=== PATIENT | male | born 1970 | race African-American/Black ===

== ENCOUNTER 2021-04-24 11:34 | Inpatient (IN) ==
[2021-04-24] MEDS ORDERED: LOPERAMIDE 2 MG CAPSULE PO STA (12:01)
[2021-04-24] MEDS ORDERED: SODIUM CHLORIDE 0.9% 1,000 ML IV STA (12:01)
[2021-04-24 12:40] LABS: Basophils % 0.1 % (0.0-0.8); Hematocrit 32.9 VOL% (42.0-52.0); Hemoglobin 10.6 GM/DL (14.0-18.0); Immature Granulocytes % 0.7 %; Immature Granulocytes Absolute 0.06 #; Lymphocytes # 0.7 10*3/uL (1.4-4.0); Lymphocytes % 7.9 % (21.2-54.2); Mean Corpuscular HGB Conc 32.2 GM/DL (32-36); Mean Platelet Volume 10.5 FL (9.6-12.0); Monocytes % 12.8 % (1.7-12.7); Neutrophils % 78.5 % (38.7-73.9); Platelet Count 384 T/CUMM (130-400); Red Blood Count 4.57 MC/CUMM (3.8-5.5); Red Cell Distribution Width 12.3 % (9.3-17.3); White Blood Count 8.2 T/CUMM (4-12)
[2021-04-24 13:03] LABS: Albumin 2.1 G/DL (3.4-5.0); Bilirubin,Total 0.7 MG/DL (0.20-1.00); Calcium 8.5 MG/DL (8.5-10.1); Osmolality,Calculated 263.1 MOS/KG (273-304); Potassium 3.5 MMOL/L (3.5-5.1)
[2021-04-24] MEDS ORDERED: GLUCAGON 1 MG VIAL IM PRN (14:17)
[2021-04-24] MEDS ORDERED: DEXTROSE 50% 25 GM/50 ML VIAL IV PRN (14:17)
[2021-04-24] MEDS ORDERED: ONDANSETRON 4 MG/2 ML VIAL IV PRN (14:22)
[2021-04-24] MEDS ORDERED: MELATONIN 3 MG TABLET PO PRN (14:26)
[2021-04-24] MEDS ORDERED: AZITHROMYCIN INJ 500 MG in SODIUM CHLORIDE 0.9% 250 ML IV ONE (14:26)
[2021-04-24 14:35] LABS: Bilirubin,Urine Negative (Negative); Blood, Urine Small mg/dL (Negative); Glucose,Urine (UA) 50 mg/dL (Negative); Ketones,Urine Negative (Negative); Nitrite,Urine Negative (Negative); Protein,Urine >=500 MG/DL; RBC,Urine 1 /HPF (0-4); Urine Appearance CLEAR (Clear); Urine Color Yellow (Yellow); Urine Specific Gravity 1.008 (1.001-1.035)
[2021-04-24 14:51] LABS: Thyroid Stimulating Hormone 0.832 uIU/ml (0.358-3.74)
[2021-04-24 14:56] LABS: INR 1.3; PT Patient Result 14.2 SECS (10.5-12.0)
[2021-04-24] MEDS ORDERED: cefTRIAXone 1,000 MG in SODIUM CHLORIDE 0.9% 100 ML IV SCH (16:00)
[2021-04-24 16:06] LABS: % Iron Saturation 13.5 % (18-50); Albumin 2.1 G/DL (3.4-5.0); Bilirubin,Direct 0.31 MG/DL (0.0-0.20); Bilirubin,Indirect 1.7 MG/DL (0.0-1.0); Ferritin 1038.7 ng/mL (26-388)
[2021-04-24] MEDS: DEXAMETHASONE 4 MG/1 ML VIAL IV SCH (17:31)
[2021-04-24] MEDS: SODIUM CHLORIDE 0.9% 1,000 ML IV SCH (17:32)
[2021-04-24] MEDS: ENOXAPARIN 40 MG/0.4 ML SYRINGE SUBCUT SCH (17:32)
[2021-04-24 17:53] LABS: Folate 14.98 NG/ML (5.38-24.0); Vitamin B12 1037 PG/ML (211-911)
[2021-04-24] MEDS: INSULIN LISPRO 100 UNIT/ML SUBCUT SCH ×2 (18:08→21:39)
[2021-04-24] MEDS ORDERED: hydrALAZINE 20 MG/1 ML VIAL IM PRN (18:11)
[2021-04-24] MEDS: ACETAMINOPHEN 325 MG TABLET PO PRN (18:30)
[2021-04-24] MEDS: hydrALAZINE 20 MG/1 ML VIAL IV PRN (18:33)
[2021-04-24 18:47] LABS: Basophils % 0.2 % (0.0-0.8); Eosinophils % 0.2 % (0.00-10.9); Hematocrit 32.6 VOL% (42.0-52.0); Hemoglobin 10.5 GM/DL (14.0-18.0); Immature Granulocytes % 0.8 %; Immature Granulocytes Absolute 0.07 #; Lymphocytes # 0.5 10*3/uL (1.4-4.0); Lymphocytes % 5.7 % (21.2-54.2); Mean Corpuscular HGB Conc 32.2 GM/DL (32-36); Mean Corpuscular Volume 72.8 FL (87-102); Mean Platelet Volume 10.9 FL (9.6-12.0); Monocytes % 11.3 % (1.7-12.7); Neutrophils % 81.8 % (38.7-73.9); Platelet Count 385 T/CUMM (130-400); Red Blood Count 4.48 MC/CUMM (3.8-5.5); Red Cell Distribution Width 12.3 % (9.3-17.3); White Blood Count 8.7 T/CUMM (4-12)
[2021-04-24 19:48] LABS: Sedimentation Rate-Westergren 74 MM/HR (0-20)
[2021-04-24] MEDS: FAMOTIDINE 20 MG TABLET PO SCH (21:40)
[2021-04-24] MEDS: ASCORBIC ACID 500 MG TABLET PO SCH (21:40)
[2021-04-25] MEDS: hydrALAZINE 20 MG/1 ML VIAL IV PRN (00:38)
[2021-04-25] MEDS: ACETAMINOPHEN 325 MG TABLET PO PRN ×2 (03:19→10:12)
[2021-04-25] MEDS: SODIUM CHLORIDE 0.9% 1,000 ML IV SCH ×3 (03:30→14:52)
[2021-04-25 05:15] LABS: Hematocrit 32.6 VOL% (42.0-52.0); Hemoglobin 10.7 GM/DL (14.0-18.0); Immature Granulocytes % 0.6 %; Immature Granulocytes Absolute 0.04 #; Lymphocytes # 0.3 10*3/uL (1.4-4.0); Lymphocytes % 4.8 % (21.2-54.2); Mean Corpuscular HGB Conc 32.8 GM/DL (32-36); Mean Corpuscular Volume 72.3 FL (87-102); Mean Platelet Volume 11.2 FL (9.6-12.0); Monocytes % 6.3 % (1.7-12.7); Neutrophils % 88.3 % (38.7-73.9); Platelet Count 412 T/CUMM (130-400); Red Blood Count 4.51 MC/CUMM (3.8-5.5); Red Cell Distribution Width 12.1 % (9.3-17.3); White Blood Count 7.1 T/CUMM (4-12)
[2021-04-25 05:41] LABS: Albumin 1.8 G/DL (3.4-5.0); Calcium 8.1 MG/DL (8.5-10.1); Hypochromasia 1+; Lymphocytes 5 % (20-55); Microcytosis 1+; Osmolality,Calculated 266.1 MOS/KG (273-304); Ovalocytes Slight; Platelet Estimate Adequate; Potassium 3.9 MMOL/L (3.5-5.1); Segmented Neutrophils 91 % (50-85); Total Cells Counted 100; Total Protein 6.5 G/DL (6.4-8.2)
[2021-04-25] MEDS ORDERED: MAGNESIUM SULF RIDER 4 GM/100 ML PREMIX IV PRN (07:07)
[2021-04-25] MEDS ORDERED: MAGNESIUM SULF RIDER 2 GM/50 ML PREMIX IV PRN (07:07)
[2021-04-25] MEDS: INSULIN LISPRO 100 UNIT/ML SUBCUT SCH ×2 (08:09→12:26)
[2021-04-25] MEDS: ASCORBIC ACID 500 MG TABLET PO SCH ×2 (08:10→08:43)
[2021-04-25] MEDS: AZITHROMYCIN 250 MG TABLET PO SCH ×2 (08:10→08:44)
[2021-04-25] MEDS: DEXAMETHASONE 4 MG/1 ML VIAL IV SCH ×2 (08:10→08:43)
[2021-04-25] MEDS: CETIRIZINE 10 MG TABLET PO SCH ×2 (08:10→08:44)
[2021-04-25] MEDS: FAMOTIDINE 20 MG TABLET PO SCH ×2 (08:11→08:43)
[2021-04-25] MEDS: CHOLECALCIFEROL 1,000 UNIT TABLET PO SCH ×2 (08:11→08:44)
[2021-04-25] MEDS: ZINC GLUCONATE 50 MG TABLET PO SCH ×2 (08:11→08:44)
[2021-04-25 12:14] VITALS: BP 160/96
[2021-04-25] MEDS: ENOXAPARIN 40 MG/0.4 ML SYRINGE SUBCUT SCH (14:52)
[2021-04-25] MEDS ORDERED: metFORMIN 500 MG TABLET PO SCH (17:00)
[2021-04-25] MEDS ORDERED: CEFUROXIME 500 MG TABLET PO SCH (21:00)
[2021-04-25] MEDS ORDERED: APIXABAN 5 MG TABLET PO SCH (21:00)
[2021-04-29 14:28] LABS: Hemoglobin A1 (Alkaline) 97.5 % (96.5-98.5); Hemoglobin A2 (Alkaline) 2.5 % (1.5-3.5)
== END 2021-04-25 15:39 | disposition home or self-care (01) | DRG 177 ==
LOC: N.ED 11:34 → N.EDINP 14:15 → N.2E 17:06
PROVIDERS: ADMIT Internal Medicine; ATTEND Internal Medicine